=== PATIENT | female | born 1990 | race Caucasian/White ===

== ENCOUNTER 2017-10-31 11:24 | Outpatient (CLI) | payer OTHER, SELFPAY | END 2017-10-31 12:25 | disposition home or self-care (01) | LOC: LABOR 12:20 → OB 11-01 11:56 | DX: Z34.83 Encounter for supervision of other normal pregnancy, third trimester (principal); M54.9 Dorsalgia, unspecified; Z3A.38 38 weeks gestation of pregnancy | CPT/HCPCS: 59025; G0378; G0379 ==

== ENCOUNTER → 2022-01-11 07:02 | Outpatient (CLI) | payer OTHER, SELFPAY ==
--- NOTE | 2022-01-11 07:04 | DI.US.S_ITS ---
PROCEDURE: US PELVIC COMPLETE INDICATIONS: pelvic pain and cramping TECHNIQUE: Real-time scanning was performed of the pelvic organs, with image documentation. Additional endovaginal scanning was necessary due to incomplete visualization of the adnexal and endometrial structures by transabdominal scanning. COMPARISON: None. FINDINGS: Uterus: Uterus is anteverted and normal in size at 9.1 x 3.8 x 6.0 cm. The myometrium is homogeneous. The endometrium measures 4 mm combined thickness. Ovaries: The right ovary measures 3.6 x 2.8 x 2.8 cm, with a calculated ovarian volume of 15 cc. The left ovary measures 2.1 x 2.9 x 2.5 cm, with a calculated ovarian volume of 7.9 cc. The ovaries have a normal sonographic appearance. Multiple follicles are noted in the bilateral ovaries. No adnexal masses are seen. Vascular waveforms are present within the bilateral ovaries. Other: No pathologic free abdominal or pelvic fluid. IMPRESSION: Pelvic ultrasound without acute sonographic abnormalities. We strive to produce accurate, complete, and clear reports of imaging services. To assist us in improving patient care, this report was composed using standard report templates and voice recognition software. Therefore, it may contain abnormal punctuation, insertions and/or omissions. Occasional wrong-word or sound-alike substitutions may occur. Though we review the report and make efforts to correct it, we do recommend that the report be read carefully in proper context to recognize any text inaccuracies. Dictated by: Lucas Luna M.D. on 01/11/2022 at 8:37 Approved by: Lucas Luna M.D. on 01/11/2022 at 8:50
== END ==
PROVIDERS: Referring Provider Obstetrics & Gynecology; Visit Provider Obstetrics & Gynecology
DX: R10.2 Pelvic and perineal pain (principal)
CPT/HCPCS: 76856

== ENCOUNTER → 2022-03-15 09:09 | Outpatient (CLI) | payer OTHER, SELFPAY ==
[2022-03-15 12:27] LABS: Appearance Urine UA CLEAR; Bilirubin Urine UA NEGATIVE (NEGATIVE); Color Urine UA YELLOW; Glucose Urine UA NEGATIVE (Negative); Ketones Urine UA NEGATIVE (NEGATIVE); Leukocyte Esterase Urine UA NEGATIVE (NEGATIVE); Nitrite Urine UA NEGATIVE (Negative); Occult Blood Urine UA NEGATIVE (Negative); Protein Urine UA NEGATIVE (Negative); Urobilinogen Urine UA 0.2 E.U./dL (0.2)
[2022-03-15 12:35] LABS: Amorphous Sediment Urine 1+; Bacteria Urine None Seen; RBC Urine None Seen (0-5/HPF); Squamous Epithelial Cell Urine 5-10 /HPF (0-5/HPF); WBC Urine None Seen (0-5/HPF)
== END ==
PROVIDERS: Visit Provider Obstetrics & Gynecology
DX: R39.15 Urgency of urination (principal)
CPT/HCPCS: 81001; 87086

== ENCOUNTER → 2022-12-23 11:20 | Outpatient (CLI) | payer OTHER, SELFPAY ==
[2022-12-23 14:11] LABS: Urine N gonorrhoeae NOT DETECTED
[2022-12-23 14:18] LABS: Urine Chlamydia NOT DETECTED
== END ==
PROVIDERS: Visit Provider Physician Assistant
DX: N94.9 Unspecified condition associated with female genital organs and menstrual cycle (principal); R10.9 Unspecified abdominal pain; N89.8 Other specified noninflammatory disorders of vagina
CPT/HCPCS: 87086; 87210; 87491; 87591

== ENCOUNTER 2023-01-16 15:21 | Emergency (ER) | payer OTHER, SELFPAY ==
[2023-01-16 15:25] VITALS: BP 125/85; PULSE 69; RESP 18; TEMP 36.6; O2SAT 99; BMI 26.6
--- NOTE | 2023-01-16 15:31 | ED_ITS ---
HPI - Eye Problem General Chief complaint: Neuro Symptoms/Deficit Stated complaint: visual changes, neuro issues Time Seen by Provider: 01/16/23 15:30 History of Present Illness HPI Narrative: Patient has an extended area of random twitches. She is under the care of a neurologist. Prior workups and proven electrolytes to be normal. Her vitamin-D level is normal. She is an MRI scheduled for tomorrow. She is no history of stroke or TIA. She is no headache. She feels her vision has become foggy starting yesterday. She is no confusion. There is no focal numbness or weakness. She denies fever, no URI symptoms. She is recently started a mushroom supplement for immune system. She is on no prescribed medications. She is not . In summary she has an extended history of brief which is. She complains of blurred vision since yesterday. Related Data Previous Rx's Medication Instructions Recorded drospirenone 3 mg-ethinyl 1 tab PO DAILY #84 tabs 02/15/22 estradiol 0.03 mg tablet Allergies Allergy/AdvReac Type Severity Reaction Status Date / Time No Known Drug Allergies Allergy Unverified 12/23/22 11:13 Review of Systems Review of Systems ROS Unobtainable: All systems reviewed & are unremarkable except as noted in HPI and below Constitutional Constitutional: Denies anorexia, Denies body ache(s), Denies chills, Denies fatigue, Denies fever(s) and Denies headache(s) Eyes Eyes: Denies blurry vision, Denies other visual disturbances and Denies eye pain ENT Ears, Nose, Mouth, and Throat: Denies otalgia, Denies facial pain and Denies headache(s) Cardiovascular Cardiovascular: Denies chest pain, Denies rapid heart rate, Denies irregular heart rhythm and Denies dyspnea Respiratory Respiratory: Denies cough and Denies dyspnea Gastrointestinal Gastrointestinal: Denies abdominal pain, Denies heartburn, Denies nausea and Denies vomiting Genitourinary Genitourinary: Denies dysuria and Denies urinary urgency Comments: Denies Musculoskeletal Musculoskeletal: Denies back pain, Denies myalgias, Reports muscle cramps and Reports tingling Integumentary/Breasts Skin/Breast: Denies changing lesions and Denies striae Neurologic Neurologic: Denies confusion, Denies headache(s) and Reports tingling Psychiatric Psychiatric: Reports anxiety, Denies confusion and Denies depression Endocrine Endocrine: Denies fatigue Hematologic/Lymphatic On Anticoagulants: No Patient History Medical History Anxiety (~2009) Headache Irregular menstrual cycle Painful menstrual periods Surgical History Anesthesia History of tonsillectomy and adenoidectomy (~2000) Social History Smoking Status: Former smoker Smoking Status: Former smoker Exam Initial Vital Signs Initial Vital Signs: Vital Signs Temperature 98 F 01/16/23 15:25 Pulse Rate 69 01/16/23 15:25 Respiratory Rate 18 01/16/23 15:25 Blood Pressure 125/85 01/16/23 15:25 Pulse Oximetry 99 01/16/23 15:25 Oxygen Delivery Method Room Air 01/16/23 15:25 Const General: cooperative, healthy appearing, comfortable, well developed and well groomed Nutritional Appearance: average body habitus HENNH Head: normal to inspection, normocephalic and atraumatic Face and sinus: normal facial exam, sinuses nontender and no maxillary instability Mouth: oral mucosae normal Throat: posterior oropharynx normal Eyes General: Yes appearance normal, both eyes and all related structures Eyelids: other (Repetitive twitching of the left eyelid) Conjunctivae: conjunctivae normal Sclera: sclerae normal Pupils: PERRL EOM: EOM intact bilaterally Neck Neck: normal visual inspection and No JVD Thyroid: thyroid normal Chest Chest: normal inspection of the chest Resp Effort & Inspection: normal respiratory effort Auscultation: clear to auscultation bilaterally Cardio Rate: regular rate Rhythm: regular rhythm Heart Sounds: S2 normal and no murmurs GI Inspection: normal to inspection Palpation: soft and No tender Percussion: normal to percussion Auscultation: normal bowel sounds Back/Spine/Pelvis Back: normal to inspection and No back tenderness Skin General: no rashes or lesions noted Neuro General: patient alert, patient awake, patient oriented x3 and no focal motor deficits Cognition: normal cognition Speech: speech normal Gait: not antalgic Sensory Exam: no sensory deficits noted Extrem General: normal to inspection, full ROM and no pedal edema Psych Appearance: grossly normal and well kempt Mental Status: mental status grossly normal Speech and Movement: speech and movement normal Mood: congruent mood Affect: normal affect Attitude: cooperative Thought Process: normal Thought Content: normal Scores NIH Stroke Scale Level of Conciousness: Alert, keenly responsive Ask month/age: Answers both questions correctly. Open/close eyes, close hand: Performs both tasks correctly Best gaze horizontal: Normal Visual dan: No visual loss Facial palsy: Normal symetrical movement Left arm drift: No drift for full 10 sec Right arm drift: No drift for full 10 sec Left leg drift: No drift for full 5 sec Right leg drift: No drift for full 5 sec Limb ataxia: Absent Sensory on face/arms/legs: Normal, no sensory loss Best language: No aphasia, normal Dysarthria: Normal Extinction or inattention: No abnormality Total NIH Stroke scale score: 0 Course Orders Ordered: ED Orders 01/16/23 15:35 CBC Auto Diff [Complete Blood Count AUTO DIFF] Stat CMP [Comprehensive Metabolic Panel] Stat Magnesium Stat TSH [Thyroid Stimulating Hormone] Stat Vital Signs Vital signs: Vital Signs - 8 hr 01/16/23 15:25 01/16/23 15:38 01/16/23 15:38 Temperature 98 F Pulse Rate 69 73 Respiratory Rate 18 18 Blood Pressure 125/85 114/75 Pulse Oximetry 99 Oxygen Delivery Method Room Air 01/16/23 15:53 01/16/23 15:53 01/16/23 16:00 Temperature Pulse Rate 66 Respiratory Rate 11 L Blood Pressure 105/62 104/61 Pulse Oximetry 99 Oxygen Delivery Method 01/16/23 16:00 01/16/23 16:30 01/16/23 16:30 Temperature Pulse Rate 66 73 Respiratory Rate 16 16 Blood Pressure 98/65 Pulse Oximetry 99 100 Oxygen Delivery Method 01/16/23 17:00 01/16/23 17:00 Temperature Pulse Rate 69 Respiratory Rate 22 Blood Pressure 97/64 Pulse Oximetry 99 Oxygen Delivery Method MDM - Eye Problem Lab Data 01/16/23 15:35 01/16/23 15:35 Labs: Lab Results 01/16/23 01/16/23 01/16/23 Range/Units 15:35 15:35 15:35 WBC 4.9 (4.5-11.0) X10^3/uL RBC 4.12 (4.0-5.2) X10^6/uL Hgb 12.8 (12.0-16.0) g/dL Hct 36.4 (36-46) % MCV 88.3 (80-100) fL MCH 31.1 (26-34) PG MCHC 35.2 (30-36) % RDW 13.3 (11.6-14.8) % Plt Count 251 (150-400) X10^3/uL Neut % (Auto) 47.6 L (50-75) % Lymph % (Auto) 42.1 H (25-40) % [place] % (Auto) 6.1 (3-14) % Eos % (Auto) 3.3 (2-4) % Baso % (Auto) 0.9 (0-2) % Neut # (Auto) 2400 (5412-1517) /uL Lymph # (Auto) 2100 (2806-3390) /uL [place] # (Auto) 300 (0-900) /uL Eos # (Auto) 200 (0-450) /uL Baso # (Auto) 0 (0-100) /uL Sodium 137 (137-145) mmol/L Potassium 3.9 (3.4-5.1) mmol/L Chloride 101 (98-107) mmol/L Carbon Dioxide 27 (22-32) mmol/L BUN 15 (7-17) mg/dL Creatinine 0.73 (0.52-1.04) mg/dL Estimated GFR > 60 (>60) mL/min BUN/Creatinine Ratio 20.5 (6-22) Glucose 92 (70-100) mg/dL Calcium 9.2 (8.4-10.2) mg/dL Magnesium 2.1 (1.6-2.3) mg/dL Total Bilirubin 0.7 (0.2-1.3) mg/dL AST 29 (14-36) IU/L ALT 34 (<35) IU/L Alkaline Phosphatase 38 (38-126) U/L Total Protein 7.9 (6.3-8.2) g/dL Albumin 4.7 (3.5-5.0) g/dL Globulin 3.2 (1.7-4.1) g/dL Albumin/Globulin Ratio 1.5 (1.0-2.8) TSH 2.12 (0.47-4.68) uIU/mL Discharge Plan Departure Patient Disposition: Home Clinical Impression: Paresthesia Instructions: DI for Muscle Spasm Activity Restrictions/Additional Instructions: Your labs look quite good, most notably your potassium and magnesium levels are normal. Abnormality of these minerals is most likely to contribute to the issues you are experiencing. Also of note, your thyroid test is normal. We are going to give you a copy of your lab work to share with your neurologist. Follow-up with your scheduled MRI, complete your neurology workup as planned. We talked briefly about anxiety. If Neurology clears you, follow-up with your PCM and discuss anxiety. Prescriptions: No Action drospirenone-ethinyl estradiol 3-0.03 mg tablet 1 tab PO DAILY Qty: 84 6RF Rx Instructions: Take one active tablet daily x 3 weeks, discard the inactive tablets and start a new pack every fourth week Referrals: ProviderRadha [Primary Care Provider] - Stand Alone Forms: Patient Portal/API
[2023-01-16 15:38] VITALS: BP 114/75; PULSE 73; RESP 18
[2023-01-16 15:53] VITALS: BP 105/62; PULSE 66; RESP 11; O2SAT 99
[2023-01-16 15:55] LABS: Add Manual Diff / Slide Review NO; Basophils Absolute Auto 0 /uL (0-100); Basophils Percent Auto 0.9 % (0-2); Eosinophils Absolute Auto 200 /uL (0-450); Eosinophils Percent Auto 3.3 % (2-4); Hematocrit 36.4 % (36-46); Hemoglobin 12.8 g/dL (12.0-16.0); Lymphocytes Absolute Auto 2100 /uL (1100-4500); Lymphocytes Percent Auto 42.1 % (25-40); Mean Corpuscular HGB Conc 35.2 % (30-36); Mean Corpuscular Hemoglobin 31.1 PG (26-34); Mean Corpuscular Volume 88.3 fL (80-100); Monocytes Absolute Auto 300 /uL (0-900); Monocytes Percent Auto 6.1 % (3-14); Neutrophils Absolute Auto 2400 /uL (1500-7000); Neutrophils Percent Auto 47.6 % (50-75); Platelet Count 251 X10^3/uL (150-400); Red Blood Cell Count 4.12 X10^6/uL (4.0-5.2); Red Cell Distribution Width 13.3 % (11.6-14.8); White Blood Cell Count 4.9 X10^3/uL (4.5-11.0)
[2023-01-16 16:00] VITALS: BP 104/61; PULSE 66; RESP 16; O2SAT 99
[2023-01-16 16:01] LABS: Alanine Aminotransferase 34 IU/L (<35); Albumin 4.7 g/dL (3.5-5.0); Albumin Globulin Ratio 1.5 (1.0-2.8); Alkaline Phosphatase 38 U/L (38-126); Aspartate Aminotransferase 29 IU/L (14-36); BUN Creatinine Ratio 20.5 (6-22); Bilirubin Total 0.7 mg/dL (0.2-1.3); Blood Urea Nitrogen 15 mg/dL (7-17); Calcium 9.2 mg/dL (8.4-10.2); Carbon Dioxide 27 mmol/L (22-32); Chloride 101 mmol/L (98-107); Estimated Glomerular Filt Rate > 60 mL/min (>60); Globulin 3.2 g/dL (1.7-4.1); Glucose 92 mg/dL (70-100); HEMOLYSIS < 15 (0-50); Magnesium 2.1 mg/dL (1.6-2.3); Potassium 3.9 mmol/L (3.4-5.1); Sodium 137 mmol/L (137-145); Total Protein 7.9 g/dL (6.3-8.2)
[2023-01-16 16:30] VITALS: BP 98/65; PULSE 73; RESP 16; O2SAT 100
[2023-01-16 16:47] LABS: Thyroid Stimulating Hormone 2.12 uIU/mL (0.47-4.68)
[2023-01-16 17:00] VITALS: BP 97/64; PULSE 69; RESP 22; O2SAT 99
== END 2023-01-16 17:11 | disposition home or self-care (01) ==
PROVIDERS: Emergency Provider Emergency Medicine
DX: R20.2 Paresthesia of skin (principal)
CPT/HCPCS: 36415; 80053; 83735; 84443; 85025; 99283; 99284

== ENCOUNTER → 2023-01-17 11:16 | Outpatient (CLI) | payer OTHER, SELFPAY ==
--- NOTE | 2023-01-17 11:17 | DI.MRI.S_ITS ---
PROCEDURE: MR CERVICAL SPINE WO/W CON INDICATIONS: Fasciculation TECHNIQUE: Noncontrast sagittal T1 spin echo and T2 fast spin echo, sagittal STIR, foraminal oblique sagittal T2 fast spin echo, axial gradient echo or T2 fast spin echo through the cervical spine. After the administration of contrast, axial and sagittal T1 spin echo with fat saturation through the cervical spine. COMPARISON: None. FINDINGS: Image quality: Excellent. Alignment and curvature: Straightening of the normal cervical lordosis Marrow: Marrow is normal in overall signal, without suspicious enhancement. Spinal cord: Visualized spinal cord has normal size and signal. No cerebellar tonsillar herniation. No abnormal intramedullary enhancement. Paraspinous soft tissues: No paravertebral masses or suspicious enhancement. C2-3: Normal appearance. C3-4: Normal appearance. C4-5: Normal appearance. C5-6: Normal appearance. C6-7: Normal appearance. C7-T1: Normal appearance. IMPRESSION: Straightening of the normal cervical lordosis may related to muscle spasm or positioning. Otherwise unremarkable MRI of the cervical spine with and without contrast. Approved by: Nathaniel Kunz M.D. on 01/17/2023 at 17:12
--- NOTE | 2023-01-17 11:17 | DI.MRI.S_ITS ---
PROCEDURE: MR THORACIC SPINE WO/W CON INDICATIONS: Fasciculation TECHNIQUE: Noncontrast sagittal T1 spin echo and T2 fast spin echo, sagittal STIR, axial T1 and T2 fast spin echo through the thoracic spine. After the administration of contrast, axial and sagittal T1 spin echo with fat saturation through the thoracic spine. COMPARISON: None. FINDINGS: Image quality: Excellent. Alignment and curvature: There is normal bony alignment. Marrow: Marrow is of normal overall signal. No acute vertebral body compression fractures. Spinal cord: Visualized spinal cord is of normal signal and size, without abnormal enhancement. Paraspinous soft tissues: No paravertebral masses or abnormal enhancement. Miscellaneous: Central canal and foramina appear widely patent at all scanned levels. IMPRESSION: Normal MRI of the thoracic spine with and without contrast Approved by: Nathaniel Kunz M.D. on 01/17/2023 at 17:14
== END ==
PROVIDERS: Referring Provider Psychiatry & Neurology Neurology; Visit Provider Psychiatry & Neurology Neurology
DX: R25.3 Fasciculation (principal); R20.2 Paresthesia of skin; B02.8 Zoster with other complications; R29.2 Abnormal reflex
CPT/HCPCS: 72156; 72157; A9579

== ENCOUNTER → 2024-03-18 08:26 | Outpatient (CLI) | payer OTHER, SELFPAY ==
[2024-03-18 16:03] LABS: Urine N gonorrhoeae NOT DETECTED
[2024-03-18 17:17] LABS: Urine Chlamydia NOT DETECTED
[2024-03-18 18:54] LABS: HIV 1 & 2 Ab/Ag 4th Gen Combo NEGATIVE (NEGATIVE); Hep C Virus Ab w/Reflex Quant NEGATIVE s/c (NEGATIVE)
[2024-03-20 00:08] LABS: Hepatitis BE Antigen Negative (Negative)
== END ==
PROVIDERS: Referring Provider Obstetrics & Gynecology; Visit Provider Obstetrics & Gynecology
DX: Z20.2 Contact with and (suspected) exposure to infections with a predominantly sexual mode of transmission (principal)
CPT/HCPCS: 36415; 86695; 86696; 86803; 87350; 87389; 87491; 87591